=== PATIENT | male | born 1995 | race African-American/Black ===

== ENCOUNTER 2018-12-26 15:18 | Emergency (ER) | payer SELFPAY ==
[2018-12-26 16:10] LABS: #Eosinphils 0.1 thou/uL (0.0-0.7); #Lymphocytes 2.7 thou/uL (1.20-3.40); #Monocytes 0.5 thou/uL (0.11-0.59); #Neutrophils 2.9 thou/uL (1.40-6.50); %Basophils 0.7 % (0.0-1.0); %Eosinophils 2.3 % (0.0-10.0); %Lymphocytes 42.5 % (21.0-51.0); %Monocytes 8.1 % (0.0-10.0); %Neutrophils 46.3 % (42.0-75.0); Hemoglobin 14.3 g/dL (14.0-18.0); Mean Corpuscular Hemoglobin 28.8 pg (27.0-31.0); Mean Corpuscular Volume 89.7 fL (78.0-98.0); Mean Platelet Volume 8.4 fL (7.4-10.4); Platelet Count 215 thou/uL (130-400); RBC Distribution Width 11.7 % (11.5-14.5); Red Blood Cell (RBC) Count 4.98 mill/uL (4.70-6.10); White Blood Cell (WBC) Count 6.3 thou/uL (4.8-10.8)
[2018-12-26 16:34] LABS: ALT (SGPT) 15 U/L (8-55); AST (SGOT) 22 U/L (5-34); Albumin 4.4 g/dL (3.5-5.0); Alkaline Phosphatase 67 U/L (40-150); Anion Gap 10 mmol/L (10-20); BUN (Urea Nitrogen) 12 mg/dL (8.9-20.6); Bilirubin, Total 0.7 mg/dL (0.2-1.2); Calc. Creatinine Clearance 0 mL/min (70-130); Calcium 9.4 mg/dL (7.8-10.44); Carbon Dioxide 26 mmol/L (22-29); Chloride 105 mmol/L (98-107); Estimated GFR-MDRD Greater than 90; Glucose 88 mg/dL (70-105); Lipase 4 U/L (8-78); Potassium 4.4 mmol/L (3.5-5.1); Protein, Total 7.4 g/dL (6.0-8.3); Sodium 137 mmol/L (136-145)
[2018-12-26 17:41] LABS: Bilirubin Negative (Negative); Blood, Urine Negative (Negative); Clarity CLEAR (Clear); Glucose, Urine (Dipstick) Negative (Negative); Leukocyte Small (Negative); Nitrite Negative (Negative); Protein, Urine (Dipstick) Negative (Neg-Trace); Specific Gravity, Urine 1.026 (1.002-1.036)
[2018-12-26 17:47] LABS: Bacteria/HPF None Seen HPF (None Seen); RBC/HPF 0-3 HPF (0-3); Squamous Epithelial 0-3 HPF (0-3); WBC/HPF 21-50 HPF (0-3)
[2018-12-26 18:00] LABS: Hyaline Casts/LPF NONE SEEN LPF (0-3 Hyaline)
== END 2018-12-26 18:40 | disposition home or self-care (01) ==
LOC: ERS 15:18
DX: R10.30 Lower abdominal pain, unspecified (principal); Z71.6 Tobacco abuse counseling; F17.210 Nicotine dependence, cigarettes, uncomplicated
CPT/HCPCS: 36415; 80053; 81003; 81015; 83690; 85025; 87086; 87491; 87591; 99406

== ENCOUNTER 2019-01-16 22:15 | Emergency (ER) | payer SELFPAY ==
--- NOTE | 2019-01-16 23:23 | RAD ---
LOLITA CHEST: Date: 01/16/19 HISTORY: Chest pain. FINDINGS: Lungs are clear. Heart and mediastinum unremarkable. IMPRESSION: No acute process. POS: [facility]
[2019-01-16] MEDS ORDERED: Lidocaine Viscous Sol 2% 15 ml UD Cup ONE (23:41)
[2019-01-16] MEDS ORDERED: Mag-Al 1200 mg/1200 mg/30 ML UDCUP ONE (23:41)
== END 2019-01-17 00:52 | disposition home or self-care (01) ==
LOC: ERS 22:15
DX: G56.00 Carpal tunnel syndrome, unspecified upper limb (principal); J20.9 Acute bronchitis, unspecified; R10.13 Epigastric pain; F17.210 Nicotine dependence, cigarettes, uncomplicated
CPT/HCPCS: 71045; 93005

== ENCOUNTER 2019-11-12 00:11 | Inpatient (IN) | payer SELFPAY ==
[2019-11-12 01:00] LABS: #Basophils 0.1 thou/uL (0.0-0.2); #Eosinphils 0.1 thou/uL (0.0-0.7); #Lymphocytes 3.4 thou/uL (1.20-3.40); #Monocytes 0.7 thou/uL (0.11-0.59); #Neutrophils 3.8 thou/uL (1.40-6.50); %Basophils 0.8 % (0.0-1.0); %Eosinophils 1.7 % (0.0-10.0); %Lymphocytes 42.4 % (21.0-51.0); %Monocytes 8.3 % (0.0-10.0); %Neutrophils 46.9 % (42.0-75.0); Hemoglobin 15.1 g/dL (14.0-18.0); Mean Corpuscular HGB CONC 32.6 g/dL (32.0-36.0); Mean Corpuscular Hemoglobin 28.8 pg (27.0-31.0); Mean Corpuscular Volume 88.4 fL (78.0-98.0); Mean Platelet Volume 8.9 fL (7.4-10.4); Platelet Count 282 thou/uL (130-400); RBC Distribution Width 11.6 % (11.5-14.5); Red Blood Cell (RBC) Count 5.25 mill/uL (4.70-6.10); White Blood Cell (WBC) Count 8.1 thou/uL (4.8-10.8)
[2019-11-12 01:28] LABS: ALT (SGPT) 28 U/L (8-55); AST (SGOT) 28 U/L (5-34); Albumin 4.5 g/dL (3.5-5.0); Alkaline Phosphatase 84 U/L (40-110); Anion Gap 15 mmol/L (10-20); BUN (Urea Nitrogen) 13 mg/dL (8.9-20.6); Bilirubin, Total 0.4 mg/dL (0.2-1.2); Calc. Creatinine Clearance 0 mL/min (70-130); Calcium 9.9 mg/dL (7.8-10.44); Carbon Dioxide 24 mmol/L (22-29); Chloride 106 mmol/L (98-107); Estimated GFR-MDRD Greater than 90; Globulin 3.1 g/dL (2.4-3.5); Glucose 103 mg/dL (70-105); Potassium 4.1 mmol/L (3.5-5.1); Protein, Total 7.6 g/dL (6.0-8.3); Sodium 141 mmol/L (136-145)
[2019-11-12 01:33] LABS: Amphetamine Not Detected (NotDetected); Barbiturates Screen Not Detected (NotDetected); Benzodiazepine Screen Not Detected (NotDetected); Cocaine Metabolite Screen Not Detected (NotDetected); Medtox Control Line Valid? VALID (VALID); Medtox Reader # READER 4; Methadone Not Detected (NotDetected); Methamphetamine Not Detected (NotDetected); Opiate Screen Not Detected (NotDetected); Oxycodone Screen Not Detected (NotDetected); Phencyclidine (PCP) Not Detected (NotDetected); THC/Cannabinoid Screen Not Detected (NotDetected); Tricyclic Screen Not Detected (NotDetected)
[2019-11-12] MEDS ORDERED: Metoprolol Tartrate 5 MG/5 ML VIAL ONE (02:04)
[2019-11-12] MEDS ORDERED: Diltiazem 125 MG/25 ML ONE ×2 (02:57→03:00)
[2019-11-12] MEDS ORDERED: Ondansetron PF 4 MG/2 ML Vial IVP PRN (04:08)
[2019-11-12] MEDS ORDERED: Diltiazem 125 MG in Sodium Chloride 0.9% 100 ML IVPB SCH (04:08)
[2019-11-12] MEDS ORDERED: Ondansetron ODT 4 MG TAB PO PRN (04:08)
[2019-11-12 04:16] VITALS: BMI 26.2
--- NOTE | 2019-11-12 04:48 | HP ---
PRIMARY CARE PROVIDER: Karlo Jo. CHIEF COMPLAINT: Shortness of breath. HISTORY OF PRESENT ILLNESS: This is a 24-year-old male, who presents to [facility] Emergency Department complaining of sudden onset of shortness of breath with chest pain and palpitations. The patient states he was preparing to go to bed, when he noticed these symptoms as described previously. The patient admits to drinking large quantities of hard liquor over the weekend as well as using marijuana. The patient also states he smokes up to half a pack of cigarettes daily. The patient denied any known chronic medical conditions, trauma, injury, fever, chills, productive cough, or exposure history. The patient denied any family members with similar symptoms. The patient denied taking any other prescription medications or being exposed to any other chemical exposure. In the emergency room, the patient underwent telemetry and EKG evaluation showing atrial fibrillation with rapid ventricular response with heart rates in the 160s. The patient initially received IV Lopressor and intravenous normal saline and transitioned to a Cardizem infusion. The patient's overall heart rate improved into the 70s, and the patient is currently asymptomatic. PAST MEDICAL HISTORY: 1. Tobacco use. 2. Marijuana use. PAST SURGICAL HISTORY: Reviewed and negative. CURRENT MEDICATIONS: Reviewed and negative. ALLERGIES: TYLENOL PM. FAMILY HISTORY: No inheritable diseases per patient's report. SOCIAL HISTORY: Resides in the [place], [place] area. Current alcohol use within the last 12 hours. Uses marijuana socially. Smokes up to half a pack of cigarettes daily. REVIEW OF SYSTEMS: CONSTITUTIONAL: Negative for weight loss or gain, ability to conduct usual activities. SKIN: Negative for rash, itching. EYES: Negative for double vision, pain. ENT/MOUTH: Negative for nose bleeding, neck stiffness, pain, tenderness. CARDIOVASCULAR: Negative for palpitations, dyspnea on exertion, orthopnea. RESPIRATORY: Negative for shortness of breath, wheezing, cough, hemoptysis, fever or night sweats. GASTROINTESTINAL: Negative for poor appetite, abdominal pain, heartburn, nausea, vomiting, constipation, or diarrhea. GENITOURINARY: Negative for urgency, frequency, dysuria, nocturia. MUSCULOSKELETAL: Negative for pain, swelling. NEUROLOGIC/PSYCHIATRIC: Negative for anxiety, depression. ALLERGY/IMMUNOLOGIC: Negative for skin rash, bleeding tendency. Otherwise negative except as stated per HPI. PHYSICAL EXAMINATION: VITAL SIGNS: On admission; blood pressure 147/99, pulse 134, respiratory rate 17, temperature 98.4 degrees Fahrenheit, and O2 saturation 100% on room air. GENERAL APPEARANCE: This is a 24-year-old male, alert and oriented x3, pleasant, responsive, in no acute distress. HEENT: Pupils are equal, round, and reactive to light and accommodation. Extraocular muscles are intact. No scleral icterus. No conjunctival injection. Nares are patent. OP is clear. Teeth in good repair. NECK: Supple. No cervical adenopathy. No thyromegaly. No carotid bruits. No JVD appreciated. Cervical spine with full active and passive range of motion. No meningeal signs noted. CHEST: Lungs are clear to auscultation bilaterally. CARDIOVASCULAR: S1 and S2 with irregular rate and rhythm. No murmur, rub, or gallop appreciated. ABDOMEN: Flat, soft, nontender, and nondistended. Bowel sounds are positive in all 4 quadrants. There is no hepatosplenomegaly. No abdominal bruits. No rebound or guarding appreciated. EXTREMITIES: Warm and dry with fair turgor. No clubbing, cyanosis, or asymmetric edema appreciated. Pulses palpable distally at the dorsalis pedis, posterior tibial, and popliteal arteries bilaterally. Capillary refill less than 2 seconds. NEUROLOGIC: Cranial nerves 2 through 12 are grossly intact. No focal or lateralizing signs appreciated. PERTINENT LABORATORY AND X-RAY FINDINGS: Complete metabolic profile within normal limits. TSH 1.81. BNP 10.6. Troponin I negative x1. CBC within normal limits. D-dimer less than 0.27. Urine drug screen dated 11/12/2019, negative. Portable chest x-ray dated 11/12/2019, showed no acute cardiopulmonary process. EKG dated 11/12/2019, by my interpretation shows atrial fibrillation with rapid ventricular response, heart rates in the 130s. Occasional PVC noted. ASSESSMENT AND PLAN: 1. New-onset atrial fibrillation with rapid ventricular response. The patient will be admitted to the telemetry unit. We will continue rate control strategy with Cardizem 5 mg/hour infusion. Check 2D transthoracic echocardiogram in the a.m. Check magnesium level. Consult Cardiology Service in the a.m. Likely patient's presentation secondary to alcohol and tobacco use. 2. Dyspnea secondary to #1. See #1 above. Improved after correction of tachycardia. 3. Alcohol use. We will offer cessation resources prior to discharge. 4. Tobacco use. We will offer cessation resources prior to discharge. 5. Prophylaxis. SCDs while in bed. Pepcid 20 mg p.o. b.i.d. 6. Code status is full. Surrogate medical decision maker, not identified. Job ID: [id number]
[2019-11-12 05:04] LABS: Troponin I Less than 0.010 ng/mL (< 0.028)
[2019-11-12] MEDS: Sodium Chloride 0.9% 1,000 ML IV SCH ×2 (05:20→09:17)
[2019-11-12 07:09] LABS: Troponin I Less than 0.010 ng/mL (< 0.028)
--- NOTE | 2019-11-12 07:57 | RAD ---
EXAM: CHEST ONE VIEW HISTORY: Dyspnea COMPARISON: 01/16/2019 FINDINGS: The cardiac silhouette and pulmonary vasculature is within normal limits. The lungs are clear. The os seous structures are intact. Chest is stable compared to prior exam. IMPRESSION: No acute cardiopulmonary process.
--- NOTE | 2019-11-12 08:05 | PDOC.HOSPP ---
- Subjective Encounter Date: 11/12/19 Encounter Time: 08:00 Subjective: no chest discomfort, sob - Objective Vital Signs & Weight: Vital Signs (12 hours) Temp Pulse Resp BP Pulse Ox 11/12/19 04:17 98.1 F 101 H 17 110/63 98 Weight Weight 162 lb 3.2 oz I&O: 11/11/19 11/12/19 11/13/19 06:59 06:59 06:59 Intake Total 120 Output Total 300 Balance -180 Result Diagrams: 11/12/19 00:48 11/12/19 00:48 Hospitalist ROS - Medication Medications: Active Medications Generic Name Dose Route Start Last Admin Trade Name Freq PRN Reason Stop Dose Admin Sodium Chloride 1,000 mls @ 100 mls/hr 11/12/19 04:08 11/12/19 05:20 Normal Saline 0.9% IV 1,000 mls .Q10H ANTONIA Administration - Exam General Appearance: awake alert Neck: no JVD Heart: RRR, no murmur, no gallops, no rubs Respiratory: CTAB Gastrointestinal: soft, normal bowel sounds Extremities: no edema Hosp A/P (1) Atrial fibrillation with rapid ventricular response Code(s): I48.91 - UNSPECIFIED ATRIAL FIBRILLATION Status: Acute (2) Alcohol abuse Code(s): F10.10 - ALCOHOL ABUSE, UNCOMPLICATED Status: Acute (3) Tobacco abuse Code(s): Z72.0 - TOBACCO USE Status: Acute (4) Dyspnea Code(s): R06.00 - DYSPNEA, UNSPECIFIED Status: Acute - Plan now in RSR diltiazem DCed Echo, card consult pending banana bag
[2019-11-12] MEDS ORDERED: Famotidine 20 MG TAB PO SCH (09:00)
[2019-11-12] MEDS ORDERED: Multivitamins, Adult 10 ML, Folic Acid 1 MG, Thiamine HCl 100 MG in Dextrose 5 %-0.45 %... IV SCH (09:00)
--- NOTE | 2019-11-12 15:01 | CON ---
DATE OF CONSULTATION: 11/12/2019 REASON FOR CONSULTATION: Atrial fibrillation. HISTORY OF PRESENT ILLNESS: Mr. Clark is a 24-year-old gentleman who recently presented with shortness of breath and tachycardia. He was found to be in atrial fibrillation with RVR. He was placed on IV Cardizem. He is now converted back to sinus rhythm. He is currently asymptomatic. He states he is back to baseline. Mr. Clark appears to binge drink. He states he drinks three 8-ounce cups of Frank Barrios over the weekend. He also has positive marijuana use. PAST MEDICAL HISTORY: None. PAST SURGICAL HISTORY: None. ALLERGIES: TYLENOL. FAMILY HISTORY: Negative for CAD. SOCIAL HISTORY: As above. REVIEW OF SYSTEMS: A 10-point review of systems is reviewed and is as above, otherwise negative. PHYSICAL EXAMINATION: VITAL SIGNS: Blood pressure 127/73, pulse 58, temperature 97. General: The patient is a pleasant male, in no acute distress, appears stated age. Head, Eyes, Ears, Nose and Throat: Sclerae without icterus. Mouth: Moist mucous membranes, normal palate. Neck: No jugular venous distention. Carotid upstroke is brisk. No bruits bilaterally. Lungs: Clear to auscultation. Heart: Regular rate and rhythm, normal S1 and S2. Abdomen: Soft, nontender, nondistended. Extremities: No edema. PERTINENT LABORATORY DATA: Hemoglobin 15.1. Troponin negative. BNP of 10. IMPRESSION: 1. Atrial fibrillation. 2. Alcohol abuse. 3. Marijuana use. RECOMMENDATIONS: Mr. Clark likely has holiday heart. He is a young person with no risk factors. His atrial fibrillation likely is secondary to binge drinking. I counseled him on cessation of all alcohol. I did state he is more likely to develop this on a routine basis if this continues. He understands. We will check his echo. His BNP is within normal limits. If his LVEF is normal, it will be okay from my standpoint to discharge home with close outpatient followup. We will also recommend low-dose aspirin. Job ID: [id number]
[2019-11-12 16:12] VITALS: BP 126/67; TEMP 98.1
--- NOTE | 2019-11-12 16:35 | DIS ---
DATE OF ADMISSION: 11/12/2019 DATE OF DISCHARGE: 11/12/2019 PRIMARY CARE PHYSICIAN: No PCP. DISPOSITION: Discharged home. FINAL DIAGNOSES: 1. Paroxysmal atrial fibrillation and dyspnea, resolved. 2. Alcohol abuse. 3. Tobacco abuse. DISCHARGE MEDICATIONS: Aspirin 81 mg a day. DIET: As tolerated. CODE STATUS: Full. PENDING AT TIME OF DISCHARGE: Nothing. HOSPITAL COURSE: The patient admitted through the [facility] Department to the Hospitalist Service with atrial fibrillation and rapid ventricular response. The patient had some dyspnea on admission, had a significant alcohol and tobacco history. The patient was dose replaced on diltiazem. He converted spontaneously into regular sinus rhythm. Diltiazem was stopped. CBC normal. D-dimer less than 0.27. Comprehensive metabolic profile normal. Cardiac enzymes; troponin less than 0.01, less than 0.01, less than 0.01. BNP 10.6. TSH 1.8. Toxicology unrevealing. Echocardiogram, normal EF seen in consultation by Dr. Luke Mccall post spontaneous conversion. The patient was examined and reviewed. No recommendations except to discharge on low-dose aspirin a day, needs to find PCP for followup. He was counseled extensively on his alcohol and tobacco abuse during his hospital stay. Job ID: [id number]
--- NOTE | 2019-11-15 15:04 | EKG ---
Test Reason : Blood Pressure : / mmHG Vent. Rate : 131 BPM Atrial Rate : 441 BPM P-R Int : 000 ms QRS Dur : 068 ms QT Int : 282 ms P-R-T Axes : 000 018 042 degrees QTc Int : 416 ms Atrial fibrillation with rapid ventricular response with premature ventricular or aberrantly conducte d complexes Abnormal ECG Confirmed by JOSE EDUARDO RAZA ([id number]), book editor CARISSA TORRES ([id number]) on 11/15/2019 3:04:09 PM Referred By: Confirmed By:JOSE EDUARDO RAZA
--- NOTE | 2019-11-19 06:47 | PQF ---
Giovanni Clark COUNCIL C MD [id number] CLINICAL DOCUMENTATION CLARIFICATION FORM: POST DISCHARGE Addendum to original discharge summary date: ____ Late entry note date: __ DATE: 11/19/2019 ATTN: Dr Willingham, [place] Please exercise your independent, professional judgment in responding to the clarification form. Clinical indicators are provided on the bottom of this form for your review In your clinical opinion based on clinical findings below, can you please indentify the etiology of Afib if due to Please check appropriate box(s): [ ] Alcohol Abuse only [ ] Toxic Effect of Marijuana [ ] Toxic Effect of both alcohol and marijuana [ ] Other diagnosis [ x ] Unable to determine For continuity of documentation, please document condition throughout progress notes and discharge summary. Thank You. CLINICAL INDICATORS - SIGNS / SYMPTOMS / LABS Vital signs 11/11 BP 115/86, pulse 128, Resp 19, Pain 4 H&P p1 11/11 Dr Bianchi Complaining of sudden onsets of SOB with chest pain and palpitations' H&P p1 11/11 Dr Bianchi Pt admits to drinking large quantities of hard liquor over the weekend as well using marijuana. The patient also states he smokes up to half a pack of cigarettes daily H&P p1 11/11 Dr Bianchi Underwent EKG showing Atrial fibrillation with rapid ventricular response with heart rate in the 160s H&P p3 11/11 Dr Bianchi likely pts presentation secondary to alcohol and tobacco use Consult p2 11/11 Afib likely is secondary to binge drinking RISKS FACTORS H&P p1 11/11 H&P p1 11/11 Tobacco use H&P p1 11/11 Marijuana use H&P p2 11/11 Alcohol abuse TREATMENTS MAR 11/11 IV Cardiazem 25mg OCT 21 IV Lopressor 5mg Toxicology ordered 11/11 EKG ordered 11/11 Cardiology consult 11/11 Luke Paige Counselled for cessation of substance abuse (This form is maintained as a part of the permanent medical record) 2014 [employer] All Rights Reserved [email or web address]
== END 2019-11-12 18:11 | disposition home or self-care (01) | DRG 309 ==
LOC: ERS 00:11 → 2NO 03:11
PROVIDERS: ADMIT Family Medicine; ATTEND Family Medicine
DX: I48.0 Paroxysmal atrial fibrillation (principal); F10.188 Alcohol abuse with other alcohol-induced disorder; F17.210 Nicotine dependence, cigarettes, uncomplicated; Z88.8 Allergy status to other drugs, medicaments and biological substances; Z71.41 Alcohol abuse counseling and surveillance of alcoholic; Z71.6 Tobacco abuse counseling
CPT/HCPCS: 36415; 71045; 80053; 80306; 83880; 84443; 84484; 85025; 85379; 93005; 93306; 96361; 96365; 96375; 96376; 99406; J3411; J7042